=== PATIENT | male | born 1950 | race Hispanic/Latino ===

== ENCOUNTER 2020-04-21 08:04 | Emergency (ER) | payer OTHER ==
[2020-04-21] MEDS ORDERED: EPINEPHrine/PF 1 MG/1 ML INJ IV ONE ×3 (08:08→08:18)
[2020-04-21] MEDS ORDERED: SODIUM BICARB 8.4% 50 MEQ/50 ML SYRINGE IV ONE ×2 (08:15→10:55)
[2020-04-21] MEDS ORDERED: DEXTROSE 50% IN WATER (25GM) 50 ML SYRINGE IV ONE (08:18)
--- NOTE | 2020-04-21 08:33 | Emergency Department Report ---
ED CPR HPI - General Stated Complaint: CARDIAC ARREST Time Seen by Provider: 04/21/20 08:23 Source: EMS - History of Present Illness Initial Comments: 69-year-old incarcerated male presents the ED from detention in cardiac arrest. His tory obtained from EMS. They state patient has history of stage IV "throat" cancer. Unknown downtime prior to EMS arrival. EMS reports patient was in asystole when they arrived. Patient was not intubated, no IV obtained, no meds given. They reported patient had ROSC in ambulance and then lost pulses again. Patient has been with EMS for approximately 20 minutes. Patient presents to the ED in [facility]. MD Complaint: found unresponsive Place: other ([facility]) Initial Findings in the Field: unresponsive, no respirations, no pulse, other rhythm (Asystole) Treatments Prior to Arrival: BMV, chest compressions - Related Data Allergies Allergy/AdvReac Type Severity Reaction Status Date / Time Unable to Assess Allergy Unverified 04/21/20 08:35 ED Review of Systems ROS: Stated complaint: CARDIAC ARREST Other details as noted in HPI Comment: Unobtainable due to pts medical conditions ED Physical Exam - Head Head exam: Present: atraumatic, normocephalic - Eye Pupils: Present: other (Fixed bilaterally) - ENT ENT exam: Present: mucous membranes dry - Neck Neck exam: Present: normal inspection - Respiratory Respiratory exam: Present: other (No spontaneous breaths) - Cardiovascular Cardiovascular Exam: Present: other (No palpable pulse) - GI/Abdominal GI/Abdominal exam: Present: soft. Absent: distended - Extremities Exam Extremities exam: Present: normal inspection - Neurological Exam Neurological exam: Present: other (GCS 3) - Skin Skin exam: Present: other (Mottled appearance) ED Course Vital Signs 04/21/20 04/21/20 08:20 08:25 Pulse Rate 0 L 0 L Respiratory 12 Rate Blood Pressure 0/0 [Left] O2 Sat by Pulse 90 Oximetry - Intubation Laryngoscope: fiberoptic video scope ET Tube Size: 7.5 Tube Secured Depth (cm): 22 Tube Secured Location: lips Tube Placement Confirmation: visualized tube passing t, equal breath sounds bilat, no breath sounds over epi, confirmation by capnometr Patient Tolerated Procedure: well Intubation Complications: none ED Medical Decision Making - Medical Decision Making Patient presented to ED in cardiac arrest. It is unclear if this was a witnessed arrest or if patient was found down at the detention. Patient was intubated by myself, ACLS was performed according to protocol. Please see nurses notes for details. Unfortunately, unable to retrieve ROSC. Time of was called at 8:20 AM. Critical care attestation.: If time is entered above; I have spent that time in minutes in the direct care of this critically ill patient, excluding procedure time. ED Disposition Clinical Impression: Cardiac arrest Disposition: DC-20 Is pt being admited?: No Condition: Stable Referrals: PRIMARY CARE, [Primary Care Provider] - 3-5 Days
[2020-04-21] MEDS ORDERED: EPINEPHrine 1 MG/10 ML SYRINGE ONE (10:55)
[2020-04-21] MEDS ORDERED: DEXTROSE IV ONE (10:55)
[2020-04-21 12:09] VITALS: BP 0/0
== END 2020-04-21 17:29 ==
LOC: ED 08:04
DX: I46.9 Cardiac arrest, cause unspecified (principal)
CPT/HCPCS: 31500; 82962; 92950; J0171